=== PATIENT | female | born 1975 | race Caucasian/White ===

== ENCOUNTER → 2020-09-10 | Outpatient (CLI) | payer OTHER ==
--- NOTE | 2020-09-15 13:39 | MM ---
Reason for exam: screening (asymptomatic). Baseline mammogram. History: Patient is nulliparous. Taking hormonal contraceptives for 2 years. Physical Findings: Nurse did not find any significant physical abnormalities on exam. MG 3D Screening Mammo W/Cad Bilateral CC and MLO view(s) were taken. The breast tissue is extremely dense which could obscure a lesion on mammography. There is no discrete abnormality. ASSESSMENT: Negative, BI-RAD 1 RECOMMENDATION: Routine screening mammogram of both breasts in 1 year. Some consider bilateral ultrasound surveillance in patient with extremely dense fibroglandular tissue.
== END | disposition home or self-care (01) ==
LOC: RADMAMWWP 07:36
PROVIDERS: ATTEND Obstetrics & Gynecology
DX: Z12.31 Encounter for screening mammogram for malignant neoplasm of breast (principal); Z79.3 Long term (current) use of hormonal contraceptives
CPT/HCPCS: 77063; 77067

== ENCOUNTER 2021-08-25 10:25 | Emergency (ER) | payer BC, OTHER ==
[2021-08-25 10:34] VITALS: RESP 18; TEMP 97.6
--- NOTE | 2021-08-25 11:01 | ED ---
Chest Pain HPI - General Chief Complaint: Chest Pain Stated Complaint: Chest Pain,Urgent care sent over Time Seen by Provider: 08/25/21 10:35 Source: patient, family, RN notes reviewed Mode of arrival: ambulatory Limitations: no limitations - History of Present Illness Initial Comments: Patient is a 45-year-old female presents the emergency room with complaints of chest pain substernal radiating upward into her shoulder region with associated shortness of breath. She reports initially symptoms occurred on Tuesday and will let a constitution party. 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 She states that with minimal exertion symptoms are mild. She is having chest pain with shortness of breath at rest currently however it is not severe. She denies any other associated symptoms such as headache, orthopnea, lower extremity edema, diaphoresis, nausea or vomiting. She has no significant past medical history. Her family history in regards to coronary artery disease is unknown as her father of alcoholism in his early 50s. Her mother has significant asthma but is unknown sure of any other medical ailments she may have. She was evaluated by urgent care earlier this morning and an EKG was performed. EKG had no significant anomalies however due to presenting symptoms she which is was advised to present to the emergency room for further evaluation and treatment.; Her symptoms have not changed since she was at the urgent care and are as stated above. - Related Data Home Medications Medication Instructions Recorded Confirmed Dimpro 1 cap PO DAILY 08/25/21 08/25/21 Fexofenadine HCl [Lizbeth Allergy] 180 mg PO DAILY 08/25/21 08/25/21 Montelukast [Singulair] 10 mg PO HS 08/25/21 08/25/21 Vienva-28 1 tab PO DAILY 08/25/21 08/25/21 buPROPion HCL [buPROPion HCL XL] 450 mg PO DAILY 08/25/21 08/25/21 Previous Rx's Medication Instructions Recorded Ibuprofen 800 mg PO Q8H PRN 10 Days #30 tab 08/25/21 Allergies Allergy/AdvReac Type Severity Reaction Status Date / Time No Known Allergies Allergy Verified 08/25/21 14:02 Review of Systems ROS Statement: Those systems with pertinent positive or pertinent negative responses have been documented in the HPI. ROS Other: All systems not noted in ROS Statement are negative. EKG Findings - EKG Comments: EKG Findings:: Sinus rhythm, ventricular rate 61 bpm, VA interval 126 ms, QRS duration 92 ms, QT/QTC 378/382 ms, PRT axes 65, 87, 60 - EKG Results: EKG: sinus rhythm Past Medical History Past Medical History: No Reported History History of Any Multi-Drug Resistant Organisms: None Reported Past Surgical History: No Surgical Hx Reported Past Psychological History: No Psychological Hx Reported Smoking Status: Never smoker Past Alcohol Use History: Occasional Past Drug Use History: None Reported General Exam Limitations: no limitations General appearance: alert, in no apparent distress Head exam: Present: atraumatic, normocephalic, normal inspection Eye exam: Present: normal appearance, PERRL, EOMI. Absent: scleral icterus, conjunctival injection, periorbital swelling ENT exam: Present: normal exam, mucous membranes moist Neck exam: Present: normal inspection Respiratory exam: Present: normal lung sounds bilaterally. Absent: respiratory distress, wheezes, rales, rhonchi, stridor Cardiovascular Exam: Present: regular rate, normal rhythm, normal heart sounds. Absent: systolic murmur, diastolic murmur, rubs, gallop, clicks GI/Abdominal exam: Present: soft, normal bowel sounds. Absent: distended, tenderness, guarding, rebound, rigid Extremities exam: Present: normal inspection, full ROM, normal capillary refill. Absent: tenderness, pedal edema, joint swelling, calf tenderness Back exam: Present: normal inspection Neurological exam: Present: alert, oriented X3, CN II-XII intact Psychiatric exam: Present: normal affect, normal mood Skin exam: Present: warm, dry, intact, normal color. Absent: rash Course Vital Signs 08/25/21 08/25/21 10:29 12:50 Temperature 97.6 F Pulse Rate 64 71 Respiratory 18 18 Rate Blood Pressure 115/66 128/74 O2 Sat by Pulse 99 98 Oximetry Chest Pain MDM - MDM Given substernal radiating chest pain with associated shortness of breath concern for ACS is high. Repeat EKG will be performed along with CBC CMP and magnesium troponins and clotting times. Will also check chest x-ray to evaluate for any underlying pulmonary cardiopulmonary process. Doubt musculoskeletal etiology given the pain location and radiation along with associated shortness of breath. Pain improves with rest but persists. EKG with out ST changes. Showing normal sinus rhythm. 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 Will continue to follow blood work. Will give aspirin and continue to monitor symptoms. Nitro paste held in the absence of hypertension associated with chest pain. Upon further discussion patient reports recently restarting oral contraceptives to control acne after having COVID in October 2021 increasing her risk for pulmonary emboli. Will defer CTA at this time but add d-dimer to blood work will also check for COVID. She continues to remain hemodynamically stable with mild substernal-like chest pain symptoms. Chest x-ray negative for acute cardiopulmonary processes. Hyperinflation noted. No abnormalities noted on blood work. Troponins negative. CBC stable. Electrolytes within normal limits. Clotting times normal. D-dimer negative. No evidence of dyspnea no further workup for PE at this time. Highly suspect pleuritic chest pain rather than cardiovascular chest pain will give Glory of Toradol and monitor response if improvement in symptoms after Toradol will plan for discharge home on anti-inflammatories. Pain much improved with dose of Toradol. Case discussed with Dr. Huynh and covering provider for her PCP Dr. Singh. Patient sees Dr. Gonsalez typically. Both agreeable with plan for discharge outpatient with NSAID use for musculoskeletal chest pain and follow-up closely in office. Disposition Clinical Impression: Costochondritis Disposition: HOME SELF-CARE Condition: Stable Instructions (If sedation given, give patient instructions): Costochondritis (ED) Prescriptions: Ibuprofen 800 mg PO Q8H PRN 10 Days #30 tab PRN Reason: Pain Is patient prescribed a controlled substance at d/c from ED?: No Referrals: Darrius Gonsalez MD [Primary Care Provider] - 1-2 days Time of Disposition: 16:36
[2021-08-25] MEDS ORDERED: ASPIRIN 81 MG PO STA (11:03)
[2021-08-25] MEDS ORDERED: NITROGLYCERIN OINT 1 INCH/GM PACKET TOPICAL STA (11:03)
[2021-08-25 11:24] LABS: Basophils % (A) 1 %; Eosinophils # (A) 0.2 k/uL (0-0.7); Eosinophils % (A) 2 %; HCT 38.9 % (34.0-46.0); HGB 12.6 gm/dL (11.4-16.0); Lymphocytes # (A) 1.1 k/uL (1.0-4.8); Lymphocytes % (A) 16 %; MCH 32.2 pg (25.0-35.0); MCHC 32.3 g/dL (31.0-37.0); MCV 99.7 fL (80.0-100.0); Mean Platelet Volume 6.9; Monocytes # (A) 0.4 k/uL (0-1.0); Monocytes % (A) 5 %; Neutrophils # (A) 5.4 k/uL (1.3-7.7); Neutrophils % (A) 75 %; Platelet Count 225 k/uL (150-450); RBC 3.91 m/uL (3.80-5.40); RDW 12.4 % (11.5-15.5); WBC 7.2 k/uL (3.8-10.6)
[2021-08-25 11:32] LABS: Partial Thromboplastin Time 24.3 sec (22.0-30.0); Prothrombin Time 10.5 sec (9.0-12.0)
[2021-08-25 11:49] LABS: ALT 46 U/L (4-34); AST 35 U/L (14-36); African American GFR (CKD) >90 (>60 ml/min/1.73 sqM); Albumin 4.3 g/dL (3.5-5.0); Alkaline Phosphatase 74 U/L (38-126); Anion Gap 8 mmol/L; Blood Urea Nitrogen 16 mg/dL (7-17); Calcium 9.2 mg/dL (8.4-10.2); Carbon Dioxide 22 mmol/L (22-30); Chloride 106 mmol/L (98-107); Glucose 84 mg/dL (74-99); Magnesium 1.8 mg/dL (1.6-2.3); Non-African American GFR(CKD) >90 (>60 ml/min/1.73 sqM); Potassium 4.1 mmol/L (3.5-5.1); Sodium 136 mmol/L (137-145); Total Bilirubin 0.5 mg/dL (0.2-1.3); Total Protein 7.6 g/dL (6.3-8.2)
--- NOTE | 2021-08-25 13:25 | XR ---
EXAMINATION TYPE: XR chest 2V DATE OF EXAM: 08/25/2021 COMPARISON: NONE TECHNIQUE: PA and lateral views submitted. HISTORY: Chest pain FINDINGS: The lungs are clear and there is no pneumothorax, pleural effusion, or focal pneumonia. Heart size normal. No overt failure. Hyperinflation of the lungs. Hypertrophic change of the spine. IMPRESSION: 1. No acute process.
[2021-08-25] MEDS ORDERED: KETOROLAC 15 MG/ML 1 ML VIAL IM STA (14:23)
[2021-08-25] MEDS ORDERED: KETOROLAC 15 MG/ML 1 ML VIAL IVP STA (14:24)
[2021-08-25 16:45] VITALS: BP 116/61; PULSE 73
== END 2021-08-25 16:51 | disposition home or self-care (01) ==
LOC: EC 10:25
DX: M94.0 Chondrocostal junction syndrome [Tietze] (principal)
CPT/HCPCS: 36415; 93005; 85379; 80053; 83735; 84484; 85025; 85610; 85730; 87635; 71046; 99285; 96374; J1885

== ENCOUNTER → 2022-02-15 | Outpatient (CLI) | payer OTHER ==
--- NOTE | 2022-02-16 08:46 | MM ---
Reason for Exam: Screening (asymptomatic). Last mammogram was performed 1 year(s) and 5 month(s) ago. Patient History: Menarche at age 15. Patient has no children. Currently using Progesterone, starting at age 45. Currently using Hormonal Contraceptives, for 2 years. Risk Values: Milady 5 year model risk: 0.8%. NCI Lifetime model risk: 9.7%. Prior Study Comparison: 09/10/2020 Bilateral Screening Mammogram, [facility]. Tissue Density: The breast tissue is extremely dense which could obscure a lesion on mammography. Findings: Analyzed By CAD. No new suspicious mass within either breast. Grouped punctate calcifications demonstrated within the upper outer right breast at posterior depth. Overall Assessment: Incomplete: need additional imaging evaluation, BI-RAD 0 Management: Diagnostic Mammogram of the right breast. A clinical breast exam by your physician is recommended on an annual basis and results should be correlated with mammographic findings. [facility] will attempt to contact patient to return for supplemental views and ultrasound if indicated. Electronically signed and approved by: Shadi Lerma D.O.
== END | disposition home or self-care (01) ==
LOC: RADMAMWWP 08:20
PROVIDERS: ATTEND Obstetrics & Gynecology
DX: Z12.31 Encounter for screening mammogram for malignant neoplasm of breast (principal)
CPT/HCPCS: 77063; 77067

== ENCOUNTER → 2022-02-18 | Outpatient (CLI) | payer OTHER ==
--- NOTE | 2022-02-18 09:41 | MM ---
Reason for Exam: Additional evaluation requested from abnormal screening. Last screening mammogram was performed less than 1 month ago. Patient History: Menarche at age 15. Patient has no children. Currently using Progesterone, starting at age 45. Currently using Hormonal Contraceptives, for 2 years. Risk Values: Milady 5 year model risk: 0.8%. NCI Lifetime model risk: 9.7%. Prior Study Comparison: 09/10/2020 Bilateral Screening Mammogram, [facility]. 02/15/2022 Bilateral MG 3D screening mammo w/cad, [facility]. Tissue Density: Right: The breast tissue is heterogeneously dense. This may lower the sensitivity of mammography. Findings: Analyzed By CAD. Grouped round calcifications far peripheral 9:00 right breast on magnification views. Additional few scattered punctate calculus are noted as well. Benign etiology is suggested. This can be reassessed in 6 months. Overall Assessment: Probably benign, BI-RAD 3 Management: Diagnostic Mammogram of the right breast in 6 months. 1. Patient should continue monthly self breast exams. 2. A clinical breast exam by your physician is recommended on an annual basis. 3. This exam should not preclude additional follow-up of suspicious palpable abnormalities. Results were given to the patient verbally at the time of exam. Electronically signed and approved by: Payam Redding M.D. Radiologist
== END | disposition home or self-care (01) ==
LOC: RADMAMWWP 09:01
PROVIDERS: ATTEND Obstetrics & Gynecology
DX: R92.8 Other abnormal and inconclusive findings on diagnostic imaging of breast (principal)
CPT/HCPCS: 77061; 77065

== ENCOUNTER → 2022-08-18 | Outpatient (CLI) | payer OTHER ==
--- NOTE | 2022-08-18 08:21 | MM ---
Reason for Exam: Follow-up at short interval from prior study. Last screening mammogram was performed 6 month(s) ago. Patient History: Menarche at age 15. Patient has no children. Currently using Progesterone, starting at age 45. Currently using Hormonal Contraceptives, for 2 years. Risk Values: Milady 5 year model risk: 0.8%. NCI Lifetime model risk: 9.7%. Prior Study Comparison: 09/10/2020 Bilateral Screening Mammogram, [facility]. 02/15/2022 Bilateral MG 3D screening mammo w/cad, [facility]. 02/18/2022 Right MG 3D work up w/cad RT, [facility]. Tissue Density: Right: The breast tissue is heterogeneously dense. This may lower the sensitivity of mammography. Findings: Analyzed By CAD. Grouped consultations right breast lateral aspect are stable. No new suspicious masses, calcifications or distortions. Overall Assessment: Probably benign, BI-RAD 3 Management: Diagnostic Mammogram of both breasts in 6 months. Results were given to the patient verbally at the time of exam. Patient should continue monthly self-breast exams. A clinical breast exam by your physician is recommended on an annual basis. This exam should not preclude additional follow-up of suspicious palpable abnormalities. Note on Milady scores and lifetime risk: 1. A Milady score greater than 3% is considered moderate risk. If this is the case, consider specialist referral to assess eligibility for a risk reducing agent. 2. If overall lifetime risk for the development of breast cancer is 20% or higher, the patient may qualify for future screening with alternating mammogram and breast MRI. Electronically signed and approved by: Doyle Dash DO
== END | disposition home or self-care (01) ==
LOC: RADMAMWWP 07:31
PROVIDERS: ATTEND Obstetrics & Gynecology
DX: R92.8 Other abnormal and inconclusive findings on diagnostic imaging of breast (principal)
CPT/HCPCS: 77061; 77065